=== PATIENT | female | born 1990 | race African-American/Black ===

== ENCOUNTER 2016-12-15 22:57 | Emergency (ER) | payer MEDICAID ==
[~2016-12-15] VITALS: Ht 154.9 cm; Wt 68.0 kg
[2016-12-15 23:14] VITALS: BP 111/51
--- NOTE | 2016-12-16 00:45 | NUR ---
26 YO FEMALE PATIENT PRESENTS TO ED WITH C/O LOWER LEFT ABD PAIN. . PT STATES HAS HAD FOR 2WEEKS .STATES N/V LAST EVENING; SKIN IS PINK/WARM/DRY; AAOX4 WITH EVEN AND STEADY GAIT; LUNGS CLEAR BL; HR EVEN AND REGULAR; PT DENIES ANY FEVER, CP, SOB, OR COUGH AT THIS TIME; PATIENT STATES PAIN OF 7/10 AT THIS TIME; VSS; PATIENT POSITIONED FOR COMFORT; HOB ELEVATED; BEDRAILS UP X2; BED DOWN. ER MD MADE AWARE OF PT STATUS.
--- NOTE | 2016-12-16 00:47 | NUR ---
Francisco J michel in ED - 12/16/16 at 0336 by MEDFLAKO TO ER BED 7
--- NOTE | 2016-12-16 00:55 | NUR ---
Patient being evaluated by physician at bedside.
[2016-12-16] MEDS ORDERED: IBUPROFEN 800 MG TAB PO ONE (01:05)
[2016-12-16 01:20] VITALS: BP 111/51
--- NOTE | 2016-12-16 01:20 | NUR ---
Patient discharged with v/s stable. Written and verbal after care instructions given and explained. Patient alert, oriented and verbalized understanding of instructions. Ambulatory with steady gait. All questions addressed prior to discharge. ID band removed. Patient advised to follow up with PMD. Rx of motrin and macrobid given. Patient educated on indication of medication including possible reaction and side effects. Opportunity to ask questions provided and answered.
[2016-12-16] MEDS ORDERED: LEVOFLOXACIN 500 MG TAB PO ONE (01:40)
--- NOTE | 2016-12-16 02:01 | NUR ---
Note undone in EDM - 12/16/16 at 0206 by [id number] 35 YO MALE PATIENT PRESENTS TO ED WITH C/O PAIN AND BLEEDING TO STOMA. PT STATES IT STARTED YESTERDAY AFTERNOON . DENIES N/V. SKIN IS PINK/WARM/DRY; AAOX4 WITH EVEN AND STEADY GAIT; LUNGS CLEAR BL; HR EVEN AND REGULAR; PT DENIES ANY FEVER, CP, SOB, OR COUGH AT THIS TIME; PATIENT STATES PAIN OF 8/10 AT THIS TIME; VSS; PATIENT POSITIONED FOR COMFORT; HOB ELEVATED; BEDRAILS UP X2; BED DOWN. ER MADE AWARE OF PT STATUS.
[2016-12-16] MEDS ORDERED: NITROFURANTOIN 100 MG CAP PO SCH (08:00)
== END 2016-12-16 01:20 | disposition home or self-care (01) ==
LOC: MED 22:57
DX: N39.0 Urinary tract infection, site not specified (principal); J45.909 Unspecified asthma, uncomplicated; Z88.5 Allergy status to narcotic agent
CPT/HCPCS: 81002; 81025; 99283

== ENCOUNTER 2022-07-24 21:31 | Emergency (ER) | payer MEDICAID ==
[~2022-07-24] VITALS: Ht 154.9 cm; Wt 83.9 kg
--- NOTE | 2022-07-24 21:56 | NUR ---
TO LOBBY A/W BED AMBULATORY
[2022-07-24 22:25] LABS: APPEARANCE,URINE CLOUDY (CLEAR); BILIRUBIN,URINE NEGATIVE (NEGATIVE); BLOOD, URINE TRACE-I (NEGATIVE); COLOR,URINE YELLOW (YELLOW); LEUKOCYTE ESTERASE ,URINE 2+ (NEGATIVE); NITRITE, URINE NEGATIVE (NEGATIVE); UGLUCOSE NEGATIVE (NEGATIVE)
[2022-07-24 22:33] LABS: RBC,URINE 0-5 /HPF (0-5)
--- NOTE | 2022-07-24 22:55 | NUR ---
called for bed no answer. lwbs
--- NOTE | 2022-07-27 12:48 | NUR ---
LATE ENTRY. RECEIVED POSITIVE URINE CULTURE. FORM GIVEN TO DR CARABALLO. PT LWBS, WAS NEVER EVALUATED BY PROVIDED. NO ORDERS GIVEN.
== END 2022-07-24 22:55 | disposition left against medical advice (07) ==
LOC: MED 21:31
DX: R10.30 Lower abdominal pain, unspecified (principal); Z53.21 Procedure and treatment not carried out due to patient leaving prior to being seen by health care provider
CPT/HCPCS: 81001; 87086

== ENCOUNTER 2023-03-28 19:21 | Emergency (ER) | payer MEDICAID ==
[~2023-03-28] VITALS: Ht 154.9 cm; Wt 81.6 kg
[2023-03-28 19:40] VITALS: BP 93/67; RESP 18; TEMP 97.6; O2SAT 99
[2023-03-28] MEDS ORDERED: MORPHINE SULFATE 4 MG/ML SYR IVP ONE (21:55)
[2023-03-28] MEDS ORDERED: ONDANSETRON 4 MG/2 ML VIAL IVP ONE (21:55)
[2023-03-28] MEDS ORDERED: NACL 0.9% 1,000 ML IV ONE (21:55)
[2023-03-28 22:33] LABS: APPEARANCE,URINE CLEAR (CLEAR); BILIRUBIN,URINE NEGATIVE (NEGATIVE); BLOOD, URINE NEGATIVE (NEGATIVE); COLOR,URINE YELLOW (YELLOW); LEUKOCYTE ESTERASE ,URINE NEGATIVE (NEGATIVE); NITRITE, URINE NEGATIVE (NEGATIVE); PROTEIN,URINE 1+ (NEGATIVE); UGLUCOSE NEGATIVE (NEGATIVE); UROBILINOGEN,URINE 0.2 EU/dL (0.2 - 1)
[2023-03-28 22:57] LABS: RBC,URINE 0-5 /HPF (0-5)
[2023-03-28 22:58] LABS: BACTERIA,URINE OCCASSIONAL /HPF (None Seen)
[2023-03-28 23:19] LABS: LACTIC ACID 1.3 mmol/L (0.4-2.0)
[2023-03-28 23:21] LABS: BASOPHILS % (AUTO) 0.5 % (0.0-2.0); EOSINOPHILS # (AUTO) 0.1 K/uL (0-0.4); EOSINOPHILS % (AUTO) 1.1 % (0.0-4.0); HEMATOCRIT 37.6 % (36-48); HEMOGLOBIN 12.7 g/dL (12.0-16.0); LYMPHOCYTES # (AUTO) 2.4 K/uL (2.5-16.5); LYMPHOCYTES % (AUTO) 31.8 % (20.5-51.1); MEAN CORPUSCULAR HEMOGLOBIN 31 pg (27-31); MEAN CORPUSCULAR HGB CONC 34 g/dL (33-37); MEAN CORPUSCULAR VOLUME 92.8 fL (80-94); MONOCYTES # (AUTO) 0.7 K/uL (0.8-1.0); MONOCYTES % (AUTO) 9.3 % (1.7-9.3); NEUTROPHILS # (AUTO) 4.2 K/uL (1.8-7.7); NEUTROPHILS % (AUTO) 57.3 % (42.2-75.2); PLATELET COUNT (AUTO) 387 K/uL (140-450); RED BLOOD CELL COUNT(AUTO) 4.05 MIL/uL (4.20-5.40); RED CELL DISTRIBUTION WIDTH 12.3 % (11.6-13.7); WHITE BLOOD COUNT (AUTO) 7.4 K/uL (4.8-10.8)
[2023-03-28 23:42] LABS: ANION GAP 10.2 (8-16); CALCIUM 8.7 mg/dL (8.5-10.1); CARBON DIOXIDE 26.4 mmol/L (21-32); CREATININE 0.7 mg/dL (0.6-1.3); POTASSIUM 3.6 mmol/L (3.5-5.1); TOTAL BILIRUBIN 0.1 mg/dL (0.0-1.0); TOTAL PROTEIN, SERUM 7.4 g/dL (6.4-8.2)
[2023-03-29] MEDS ORDERED: MORPHINE SULFATE 4 MG/ML SYR IVP ONE ×2 (03:05→06:10)
[2023-03-29] MEDS ORDERED: LEVOFLOXACIN 500 MG/D5W PREMIX 100 ML IV ONE (05:30)
[2023-03-29] MEDS ORDERED: metroNIDAZOLE 500 MG/NS PREMIX 100 ML IV ONE (05:30)
[2023-03-29] MEDS ORDERED: LEVO-481 PO ×2 (05:33→05:58)
[2023-03-29] MEDS ORDERED: METR-435 PO ×2 (05:33→05:58)
[2023-03-29] MEDS ORDERED: NAPR-54 PO ×2 (05:35→05:58)
[2023-03-29 07:10] VITALS: BP 118/83; PULSE 80; RESP 18; TEMP 97.6; O2SAT 99
== END 2023-03-29 07:10 | disposition home or self-care (01) ==
LOC: MED 19:21
DX: N73.9 Female pelvic inflammatory disease, unspecified (principal); R10.31 Right lower quadrant pain; J45.909 Unspecified asthma, uncomplicated; Z88.5 Allergy status to narcotic agent; Z79.899 Other long term (current) drug therapy
CPT/HCPCS: 36415; 74176; 76830; 80053; 81001; 81025; 82150; 83605; 83690; 85025; 87040; 87086; 87210; 96361; 96365; 96368; 96375; 96376; 99285; J1956; J2270; J2405; J3490; Q0092